=== PATIENT | male | born 1965 | race African-American/Black ===

== ENCOUNTER 2019-06-01 20:01 | Emergency (ER) | payer MEDICAID ==
[~2019-06-01] VITALS: Ht 182.9 cm; Wt 111.1 kg
--- NOTE | 2019-06-01 20:13 | NUR ---
PPatient to ER bed 5 to gown for evaluation. Side rails up. Report given to OLIVER ISAAC.
[2019-06-01 20:14] VITALS: BP_SYST 115
--- NOTE | 2019-06-01 20:15 | NUR ---
Dr Mendez at bedside examining patient
--- NOTE | 2019-06-01 20:15 | NUR ---
MD TO BEDSIDE TO ASSESS
--- NOTE | 2019-06-01 21:12 | NUR ---
ALERT, CALM , RESP UNLABORED, SKIN WARM AND DRY. DENIES CP/SOB. COMMUNICATES CLEARLY IN FULL COMPLETE SENTENCES. HERE TODAY FOR PROGRESSION OF SWELLING TO RT LOWER EXT. 1+ PITTING EDEMA TO RT LOWER EXT. ALSO C/O PAIN TO RT SHOULDER WITH MOVEMENT. NO DISTRESS.
[2019-06-01 21:19] LABS: BASOPHILS # (AUTO) 0.1 K/uL (0.0-0.2); EOSINOPHILS # (AUTO) 0.5 K/uL (0.0-0.4); HEMATOCRIT 41.4 % (36-54); HEMOGLOBIN 13.5 g/dL (14.0-18.0); LYMPHOCYTES # (AUTO) 1.2 K/uL (1.0-5.5); LYMPHOCYTES % (AUTO) 19.5 % (20.5-51.5); MEAN CORPUSCULAR HEMOGLOBIN 26 pg (27-31); MEAN CORPUSCULAR HGB CONC 33 % (32-36); MEAN CORPUSCULAR VOLUME 81 fL (79.0-98.0); MONOCYTES # (AUTO) 0.6 K/uL (0.0-1.0); MONOCYTES % (AUTO) 9.3 % (1.7-9.3); NEUTROPHILS # (AUTO) 3.7 K/uL (1.8-7.7); NEUTROPHILS % (AUTO) 62.2 % (40.0-70.0); PLATELET COUNT (AUTO) 164 K/uL (130-430); RED BLOOD CELL COUNT(AUTO) 5.14 MIL/uL (4.2-6.2); RED CELL DISTRIBUTION WIDTH 13.1 % (9.0-15.0)
--- NOTE | 2019-06-01 21:35 | NUR ---
NO CHANGE IN MENTATION,CALM, EASILY AROUSED, WORK-UP IN PROGRESS. ULTRASOUND PENDING
[2019-06-01 21:43] LABS: CALCIUM 8.4 mg/dL (8.4-11.0); CREATININE 1.13 mg/dL (0.55-1.30); POTASSIUM 3.9 mmol/L (3.5-5.1)
[2019-06-01 21:48] LABS: PROTHROMBIN TIME 10.2 SECS (9.5-12.5)
[2019-06-01 21:55] LABS: ALBUMIN 3.9 g/dL (3.4-4.8); TOTAL BILIRUBIN 0.3 mg/dL (0.0-1.0)
--- NOTE | 2019-06-01 22:40 | NUR ---
PT TAKEN TO RADIOLOGY IN STABLE CONDITION
--- NOTE | 2019-06-01 23:02 | NUR ---
PT BACK FROM RADIOLOGY WELL TOLERATED
--- NOTE | 2019-06-01 23:49 | NUR ---
DR. ROMERO BEDSIDE FOR PT UPDATE
[2019-06-02 00:15] VITALS: BP_SYST 124
--- NOTE | 2019-06-02 00:15 | NUR ---
Patient given written and verbal discharge instructions and verbalizes understanding. ER MD discussed with patient the results and treatment provided. Patient in stable condition. ID arm band removed. IV catheter removed intact and dressing applied, no active bleeding. Rx of given. Patient educated on pain management and to follow up with PMD. Pain Scale 0/10 Opportunity for questions provided and answered.
== END 2019-06-02 00:15 | disposition home or self-care (01) ==
LOC: SED 20:01
DX: R60.0 Localized edema (principal); I50.9 Heart failure, unspecified; Z88.8 Allergy status to other drugs, medicaments and biological substances
CPT/HCPCS: 36415; 80053; 82550-TC; 83880; 85025; 85610-TC; 85730-TC; 93005; 93971; 99285